=== PATIENT | female | born 1950 | race Two or more races ===

== ENCOUNTER 2021-08-08 22:31 | Emergency (ER) | payer SELFPAY ==
[~2021-08-08] VITALS: Ht 157.5 cm; Wt 76.4 kg
[2021-08-08 22:34] VITALS: BP 146/65
== END 2021-08-09 02:29 | disposition left against medical advice (07) ==
LOC: ER 22:32
DX: M79.604 Pain in right leg (principal); Z53.21 Procedure and treatment not carried out due to patient leaving prior to being seen by health care provider